=== PATIENT | female | born 1975 | race Caucasian/White ===

== ENCOUNTER 2020-10-23 10:55 | Emergency (ER) | payer OTHER, SELFPAY ==
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
[2020-10-23 11:39] VITALS: BP 149/87; PULSE 78; RESP 18; TEMP 36.8; O2SAT 100
--- NOTE | 2020-10-23 12:13 | PC.NURSE ---
HARRY Adkins at bedside.
[2020-10-23] MEDS: ACETAMINOPHEN 325 MG TABLET 650 MG PO (12:51)
[2020-10-23] MEDS: IBUPROFEN 400 MG TABLET 800 MG PO (12:51)
--- NOTE | 2020-10-23 12:52 | PC.NURSE ---
Pt medicated per provider order, Eden menjivar at bedside taking pt to CT in wheelchair at this time.
--- NOTE | 2020-10-23 13:06 | PC.NURSE ---
Pt resting on stretcher, call light in reach, awaiting ct results.
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
[2020-10-23 14:03] VITALS: BP 118/75; PULSE 78; RESP 16; O2SAT 100
== END 2020-10-23 14:04 | disposition home or self-care (01) ==
PROVIDERS: Emergency Provider Emergency Medicine; PCP Family Medicine
DX: S13.9XXA Sprain of joints and ligaments of unspecified parts of neck, initial encounter (principal); V43.52XA Car driver injured in collision with other type car in traffic accident, initial encounter
CPT/HCPCS: 72125; 99284; A9270